=== PATIENT | male | born 1960 | race Asian ===

== ENCOUNTER → 2021-02-06 | Emergency (ER) | payer OTHER ==
[~2021-02-06] VITALS: Ht 172.7 cm; Wt 104.5 kg
[~2021-02-06] MED LIST: IBUPROFEN 600 MG TABLET PO ONE
[2021-02-06 20:50] VITALS: BP 147/75
== END | disposition home or self-care (01) ==
LOC: EMS 18:26
DX: S80.01XA Contusion of right knee, initial encounter (principal); E78.00 Pure hypercholesterolemia, unspecified; V49.9XXA Car occupant (driver) (passenger) injured in unspecified traffic accident, initial encounter; Y93.89 Activity, other specified; Y92.89 Other specified places as the place of occurrence of the external cause; Y99.8 Other external cause status
CPT/HCPCS: 99283